=== PATIENT | female | born 1950 | race Caucasian/White ===

== ENCOUNTER → 2021-07-28 | Outpatient (CLI) | payer MEDICARE, OTHER ==
[~2021-07-28] MED LIST: CYANOCOBAL1000 MCG/1 INJ; FUROSEMIDE20 MG PO; GLIPIZIDE XL2.5 MG PO; GLUCOPHAGE 500500 MG PO; IBU400 MG PO; LEVOTHYROXINE50 MCG PO; MONTELUKAST SOD10 MG PO; MUCINEX FAST-M1 EAC2 PO; ONDANSETRON ODT4 MG PO; PEPCID AC20 MG PO; PERCOCET 10-321 EACH PO; POTASSIUM CHLO10 ME2 PO; SYMBICORT 16010.2 GM INH; TRULICITY1.5 MG/0.5 SQ; VENTOLIN HFA 66.7 GM INH; VOLTAREN ARTHRI20 GM TP; WELCHOL625 MG PO; ZOCOR 40 MG TAB40 MG PO
== END ==
LOC: RAD 18:22
DX: J20.9 Acute bronchitis, unspecified (principal); R53.83 Other fatigue; Z86.16 Personal history of COVID-19
CPT/HCPCS: 71046

== ENCOUNTER → 2021-07-29 | Outpatient (CLI) | payer MEDICARE ==
[2021-07-29 08:51] LABS: HEMOGLOBIN 13.3 gm/dl (12.3-15.3); RED BLOOD COUNT 4.18 M/UL (4.00-5.10); WHITE BLOOD COUNT 7.2 K/UL (4.5-11.0)
== END ==
LOC: LAB 07:41
PROVIDERS: Nurse Practitioner
DX: J20.9 Acute bronchitis, unspecified (principal); Z86.16 Personal history of COVID-19; R53.83 Other fatigue
CPT/HCPCS: 36415; 80053; 85025